=== PATIENT | female | born 1970 | race Caucasian/White ===

== ENCOUNTER 2020-06-08 11:05 | Outpatient (CLI) | payer OTHER ==
[2020-06-08 16:23] LABS: Hemoglobin A1c 9.3 % (4.0-6.0)
== END 2020-06-08 11:06 | disposition home or self-care (01) ==
LOC: NAV LAB 11:05
PROVIDERS: ATTEND Internal Medicine
DX: E11.9 Type 2 diabetes mellitus without complications (principal)
CPT/HCPCS: 36415; 83036

== ENCOUNTER 2020-12-07 11:44 | Outpatient (CLI) | payer OTHER | END 2020-12-07 11:45 | disposition home or self-care (01) | LOC: NAV RAD 11:44 | DX: M54.2 Cervicalgia (principal); M47.812 Spondylosis without myelopathy or radiculopathy, cervical region | CPT/HCPCS: 72040 ==

== ENCOUNTER 2022-12-14 08:57 | Emergency (ER) | payer BC ==
[2022-12-14] MEDS ORDERED: Iopamidol 370 76% 100 ML VIAL ONE (09:00)
[2022-12-14] MEDS ORDERED: methylPREDNISolone Sod Succ/PF 125 MG/2 ML VIAL ONE (09:47)
[2022-12-14] MEDS ORDERED: Ipratropium/Albuterol 3 ML NEB ONE ×2 (09:47→12:29)
[2022-12-14] MEDS ORDERED: Sodium Chloride 0.9% 1,000 ML ONE (09:47)
[2022-12-14] MEDS ORDERED: Ondansetron PF 4 MG/2 ML Vial ONE (10:01)
[2022-12-14 10:08] LABS: ALT (SGPT) 21 U/L (8-55); AST (SGOT) 16 U/L (5-34); Albumin 3.7 g/dL (3.5-5.0); Alkaline Phosphatase 82 U/L (40-110); Anion Gap 14 mmol/L (10-20); BUN (Urea Nitrogen) 13 mg/dL (9.8-20.1); Bilirubin, Total 0.6 mg/dL (0.2-1.2); Calc. Creatinine Clearance 0 mL/min (70-130); Calcium 9.1 mg/dL (7.8-10.44); Carbon Dioxide 23 mmol/L (22-29); Chloride 103 mmol/L (98-107); Estimated GFR 88; Globulin 3.3 g/dL (2.4-3.5); Glucose 83 mg/dL (70-105); Potassium 3.7 mmol/L (3.5-5.1); Sodium 136 mmol/L (136-145)
[2022-12-14 10:12] LABS: #Basophils 0.1 thou/uL (0.0-0.2); #Lymphocytes 1.1 thou/uL (1.20-3.40); #Monocytes 0.6 thou/uL (0.11-0.59); #Neutrophils 8.6 thou/uL (1.40-6.50); %Basophils 0.7 % (0.0-1.0); %Eosinophils 0.4 % (0.0-10.0); %Lymphocytes 10.5 % (21.0-51.0); %Monocytes 5.9 % (0.0-10.0); %Neutrophils 82.5 % (42.0-75.0); Hemoglobin 14.8 g/dL (12.0-16.0); Mean Corpuscular HGB CONC 32.5 g/dL (32.0-36.0); Mean Corpuscular Hemoglobin 28.3 pg (27.0-31.0); Mean Corpuscular Volume 87.1 fl (78.0-98.0); Mean Platelet Volume 9.4 fL (7.4-10.4); Platelet Count 155 10x3/uL (130-400); RBC Distribution Width 12.9 % (11.5-14.5); Red Blood Cell (RBC) Count 5.21 mill/uL (4.20-5.40); White Blood Cell (WBC) Count 10.4 10x3/uL (4.8-10.8)
[2022-12-14] MEDS ORDERED: Azithromycin 500 MG VIAL ONE (11:31)
[2022-12-14] MEDS ORDERED: Sodium Chloride 0.9% 250 ML 250 ML ONE (11:31)
[2022-12-14] MEDS ORDERED: Budesonide 0.5 MG/2 ML NEB ONE (12:29)
[2022-12-14] MEDS ORDERED: Sodium Chloride 0.9% 100 ML ONE (12:48)
[2022-12-14] MEDS ORDERED: cefTRIAXone (ROCEPHIN) 1 GM VIAL ONE (12:48)
[2022-12-14 13:51] LABS: SARS-CoV-2 NAA Rapid Test Not Detected (NotDetected)
== END 2022-12-14 14:02 | disposition short-term general hospital (02) ==
LOC: NAV ERS 08:57
DX: J45.901 Unspecified asthma with (acute) exacerbation (principal); J18.0 Bronchopneumonia, unspecified organism; E11.9 Type 2 diabetes mellitus without complications; Z79.4 Long term (current) use of insulin
CPT/HCPCS: 36416; 71046; 71275; 80053; 83605; 85025; 85379; 87040; 87070; 87077; 87205; 96361; 96365; 96367; 96375; J0456; J0696; J2405; J2930; J3490; J7050; J7620; J7626; Q9967; U0002

== ENCOUNTER 2023-05-24 09:04 | Outpatient (CLI) | payer BC | END 2023-05-24 09:05 | disposition home or self-care (01) | LOC: NAV CT 09:04 | PROVIDERS: ATTEND Internal Medicine Critical Care Medicine | DX: R91.8 Other nonspecific abnormal finding of lung field (principal) | CPT/HCPCS: 82565 ==

== ENCOUNTER 2023-12-18 08:12 | Outpatient (CLI) | payer BC ==
[2023-12-18] MEDS ORDERED: Iopamidol 370 76% 100 ML VIAL ONE (09:00)
== END 2023-12-18 08:13 | disposition home or self-care (01) ==
LOC: NAV CT 08:12
PROVIDERS: ATTEND Internal Medicine Critical Care Medicine
DX: R91.8 Other nonspecific abnormal finding of lung field (principal)
CPT/HCPCS: 71260

== ENCOUNTER 2024-06-09 08:12 | Outpatient (CLI) | payer BC | END 2024-06-09 08:13 | disposition home or self-care (01) | LOC: NAV CT 08:12 | PROVIDERS: ATTEND Internal Medicine Critical Care Medicine | DX: R91.8 Other nonspecific abnormal finding of lung field (principal); R59.0 Localized enlarged lymph nodes | CPT/HCPCS: 71260 ==

== ENCOUNTER 2025-03-25 11:16 | Outpatient (CLI) | payer BC, OTHER | END 2025-03-25 11:17 | disposition home or self-care (01) | LOC: NAV RAD 11:16 | PROVIDERS: ATTEND Chiropractor | DX: M54.2 Cervicalgia (principal); M51.369 Other intervertebral disc degeneration, lumbar region without mention of lumbar back pain or lower extremity pain; M47.812 Spondylosis without myelopathy or radiculopathy, cervical region; M43.16 Spondylolisthesis, lumbar region | CPT/HCPCS: 72040; 72120 ==